=== PATIENT | female | born 2005 | race African-American/Black ===

== ENCOUNTER 2024-08-10 01:42 | Inpatient (IN) | payer SELFPAY ==
[~2024-08-10] VITALS: Ht 160 cm; Wt 54.4 kg
[2024-08-10 02:37] LABS: BASOPHILS % 0.8 % (0.0-2.0); HEMATOCRIT. 40.9 % (36.0-48.0); HEMOGLOBIN. 13.7 g/dL (12.0-16.0); LYMPHOCYTES % 23.4 % (20.0-50.0); MEAN CORPUSCULAR HGB CONC 33.6 g/dL (31.0-37.0); MEAN CORPUSCULAR VOLUME 89.4 fL (81.0-99.0); MEAN PLATELET VOLUME 8.5 fl (7.4-10.4); MONOCYTES % 9.2 % (2.0-8.0); NEUTROPHILS % 65.6 % (40.0-76.0); PLATELET 325 x1000/uL (130-400); RED BLOOD CELL COUNT 4.58 mill/uL (4.2-5.4); RED CELL DISTRIBUTION WIDTH 14.4 % (11.6-14.6); WHITE BLOOD COUNT 6.8 x1000/uL (4.5-11.0)
[2024-08-10 02:45] LABS: CHLORIDE 108 mEq/L (98-107); POTASSIUM 3.5 mEq/L (3.5-5.1); SODIUM 145 mEq/L (136-145)
[2024-08-10 02:46] LABS: CALCIUM 9.6 mg/dL (8.7-10.4); CARBON DIOXIDE 23 mEq/L (21-32)
[2024-08-10 02:51] LABS: CREATININE 0.7 mg/dL (0.6-1.0); ETHANOL BLOOD 203 mg/dL (<10); GLUCOSE 87 mg/dL (70-105)
[2024-08-10 02:53] LABS: ACETAMINOPHEN 44 ug/mL (10-30)
[2024-08-10 02:57] LABS: CLARITY URINE CLEAR (CLEAR); COLOR URINE YELLOW (YELLOW); GLUCOSE URINE NEGATIVE (NEGATIVE); KETONES URINE NEGATIVE (NEGATIVE); LEUKOCYTE ESTERASE URINE NEGATIVE (NEGATIVE); NITRITE URINE NEGATIVE (NEGATIVE); OCCULT BLOOD URINE NEGATIVE (NEGATIVE); PROTEIN URINE NEGATIVE (NEGATIVE); SPECIFIC GRAVITY URINE 1.004 (1.005-1.030); UROBILINOGEN URINE 0.2 E.U./dL (0.2-1.0)
[2024-08-10 03:03] LABS: UREA NITROGEN BLOOD < 5 mg/dL (9-23)
[2024-08-10 03:04] LABS: *AMPHETAMINES SCREEN URINE NEGATIVE (NEGATIVE); *BARBITURATES SCREEN URINE NEGATIVE (NEGATIVE); *BENZODIAZEPINES SCREEN URINE NEGATIVE (NEGATIVE); *COCAINE SCREEN URINE NEGATIVE (NEGATIVE)
[2024-08-10 03:05] LABS: CANNABINOID URINE SCREEN PRESUMPTIVE POSITIVE (NEGATIVE); ECSTASY MDMA SCREEN URINE NEGATIVE (NEGATIVE); METHADONE URINE SCREEN NEGATIVE (NEGATIVE); OPIATES URINE SCREEN NEGATIVE (NEGATIVE); PHENCYCLIDINE URINE SCREEN NEGATIVE (NEGATIVE)
[2024-08-10] MEDS ORDERED: ACTIVATED CHARCOAL 50 G/240 ML TUBE PO ONE (03:15)
[2024-08-10] MEDS: ONDANSETRON HCL 4MG/2ML INJ IV ONE (03:50)
[2024-08-10] MEDS: PANTOPRAZOLE SODIUM 40 MG/VIAL IV ONE (03:50)
[2024-08-10] MEDS ORDERED: WATER IV NR (04:00)
[2024-08-10] MEDS ORDERED: DEXT 5% IV NR (04:00)
[2024-08-10] MEDS ORDERED: ACETYLCYSTEINE IV NR (04:00)
[2024-08-10] MEDS: ACTIVATED CHARCOAL 50 G/240 ML TUBE PO NR (04:46)
[2024-08-10 04:50] LABS: IRON 346 ug/dL (50-170)
[2024-08-10] MEDS ORDERED: DOCUSATE SODIUM 100MG CAPSULE PO PRN (05:00)
[2024-08-10] MEDS ORDERED: LORAZEPAM 0.5MG TABLET PO PRN (05:00)
[2024-08-10] MEDS ORDERED: CLONIDINE 0.1MG TABLET PO PRN (05:00)
[2024-08-10] MEDS ORDERED: IPRATROPIUM/ALBUTEROL 0.5-3(2.5)MG/3ML NEB HHN PRN (05:00)
[2024-08-10] MEDS ORDERED: GUAIFENESIN 200MG/10ML SUGAR FREE UDC PO PRN (05:00)
[2024-08-10] MEDS ORDERED: ONDANSETRON HCL 4MG/2ML INJ IV PRN (05:00)
[2024-08-10] MEDS: WATER IV NR (05:03)
[2024-08-10] MEDS: ACETYLCYSTEINE IV NR (05:03)
[2024-08-10] MEDS: DEXT 5% IV NR (05:03)
[2024-08-10 05:34] LABS: ALANINE AMINOTRANSFERASE 11 IU/L (10-49); ALBUMIN 4.6 g/dL (3.2-4.8); ASPARTATE AMINOTRANSFERASE 28 IU/L (<34); BILIRUBIN DIRECT 0.1 mg/dL (<=3.0); BILIRUBIN TOTAL 0.6 mg/dL (0.1-1.0); PROTEIN TOTAL 8.2 g/dL (6.0-8.3)
[2024-08-10] MEDS: FOLIC ACID 1 MG, THIAMINE HCL 100 MG, MVI, ADULT NO.1 10 ML in DEXTROSE 5% WATER 1,000 ML IV NR (07:33)
[2024-08-10 08:03] LABS: ACETAMINOPHEN 11 ug/mL (10-30); CREATINE KINASE 197 IU/L (34-145)
[2024-08-10 09:16] LABS: IRON 354 ug/dL (50-170)
[2024-08-10 10:08] LABS: IRON 315 ug/dL (50-170)
[2024-08-10 10:11] LABS: ALANINE AMINOTRANSFERASE 12 IU/L (10-49); ALBUMIN 4.1 g/dL (3.2-4.8); ASPARTATE AMINOTRANSFERASE 24 IU/L (<34); BILIRUBIN TOTAL 0.3 mg/dL (0.1-1.0); PROTEIN TOTAL 6.9 g/dL (6.0-8.3)
[2024-08-10 10:12] LABS: BILIRUBIN DIRECT < 0.1 mg/dL (<=3.0)
[2024-08-10 12:26] LABS: IRON 324 ug/dL (50-170)
[2024-08-10 14:22] VITALS: BP 118/83; PULSE 76; RESP 17; TEMP 36.3
[2024-08-10 20:00] VITALS: BP 106/69; PULSE 69; RESP 20; TEMP 36.3; O2SAT 98
[2024-08-11] VITALS: BP 103/49; PULSE 69; RESP 20; TEMP 36.4; O2SAT 99
[2024-08-11 04:00] VITALS: BP 112/59; PULSE 58; RESP 20; TEMP 36.2; O2SAT 98
[2024-08-11 07:00] VITALS: BP 102/57; PULSE 67; RESP 18; TEMP 36.5; O2SAT 99
[2024-08-11 08:31] LABS: BASOPHILS % 0.5 % (0.0-2.0); EOSINOPHILS % 2.7 % (0.0-5.0); HEMATOCRIT. 38.7 % (36.0-48.0); HEMOGLOBIN. 12.9 g/dL (12.0-16.0); LYMPHOCYTES % 28.7 % (20.0-50.0); MEAN CORPUSCULAR HEMOGLOBIN 29.9 pg (28.0-32.0); MEAN CORPUSCULAR HGB CONC 33.4 g/dL (31.0-37.0); MEAN CORPUSCULAR VOLUME 89.4 fL (81.0-99.0); MEAN PLATELET VOLUME 8.9 fl (7.4-10.4); MONOCYTES % 14.3 % (2.0-8.0); NEUTROPHILS % 53.8 % (40.0-76.0); PLATELET 275 x1000/uL (130-400); RED BLOOD CELL COUNT 4.33 mill/uL (4.2-5.4); RED CELL DISTRIBUTION WIDTH 14.5 % (11.6-14.6)
[2024-08-11 08:39] LABS: CHLORIDE 107 mEq/L (98-107); POTASSIUM 3.2 mEq/L (3.5-5.1); SODIUM 142 mEq/L (136-145)
[2024-08-11 08:40] LABS: CARBON DIOXIDE 23 mEq/L (21-32)
[2024-08-11 08:41] LABS: CALCIUM 9.2 mg/dL (8.7-10.4)
[2024-08-11 08:45] LABS: CREATININE 0.7 mg/dL (0.6-1.0); GLUCOSE 79 mg/dL (70-105)
[2024-08-11 08:46] LABS: UREA NITROGEN BLOOD 6 mg/dL (9-23)
[2024-08-11] MEDS ORDERED: MULTIVITAMINS,THER W-MINERALS TABLET PO SCH (09:00)
[2024-08-11] MEDS: THIAMINE HCL 100MG TABLET PO SCH (09:09)
[2024-08-11] MEDS: FOLIC ACID 1MG TABLET PO SCH (09:09)
[2024-08-11] MEDS: POTASSIUM CHLORIDE 20MEQ TABLET SR PO NR (10:10)
[2024-08-11 10:20] LABS: ACETAMINOPHEN < 2 ug/mL (10-30); ALANINE AMINOTRANSFERASE 12 IU/L (10-49); ASPARTATE AMINOTRANSFERASE 19 IU/L (<34)
[2024-08-11 10:21] LABS: ALBUMIN 3.8 g/dL (3.2-4.8); BILIRUBIN DIRECT 0.1 mg/dL (<=3.0); BILIRUBIN TOTAL 0.5 mg/dL (0.1-1.0); PROTEIN TOTAL 6.3 g/dL (6.0-8.3)
[2024-08-11 11:21] LABS: IRON 63 ug/dL (50-170)
[2024-08-11 12:00] VITALS: BP 113/60; PULSE 70; RESP 18; TEMP 36.5; O2SAT 99
[2024-08-11 16:00] VITALS: BP 109/63; PULSE 66; RESP 18; TEMP 36.8; O2SAT 98
[2024-08-11 20:00] VITALS: BP 113/62; PULSE 65; RESP 20; TEMP 36.2; O2SAT 98
[2024-08-12] VITALS: BP 95/54; PULSE 56; RESP 20; TEMP 36.4; O2SAT 98
[2024-08-12 04:00] VITALS: BP 106/64; PULSE 51; RESP 20; TEMP 36.3; O2SAT 98
[2024-08-12 08:00] VITALS: BP 129/78; PULSE 57; RESP 19; TEMP 37.1; O2SAT 98
[2024-08-12 12:00] VITALS: BP 115/57; PULSE 123; RESP 15; TEMP 36.5; O2SAT 97
[2024-08-12 13:16] LABS: CHLORIDE 106 mEq/L (98-107); POTASSIUM 3.7 mEq/L (3.5-5.1); SODIUM 142 mEq/L (136-145)
[2024-08-12 13:17] LABS: CALCIUM 9.8 mg/dL (8.7-10.4); CARBON DIOXIDE 24 mEq/L (21-32)
[2024-08-12 13:22] LABS: CREATININE 0.7 mg/dL (0.6-1.0); GLUCOSE 77 mg/dL (70-105)
[2024-08-12 13:51] LABS: UREA NITROGEN BLOOD < 5 mg/dL (9-23)
[2024-08-12 16:00] VITALS: BP 104/66; PULSE 60; RESP 19; TEMP 37.1; O2SAT 98
[2024-08-12 20:00] VITALS: BP 120/77; PULSE 80; RESP 20; TEMP 36.3; O2SAT 98
[2024-08-13] VITALS: BP 100/66; PULSE 66; RESP 20; TEMP 36.3; O2SAT 98
[2024-08-13 04:00] VITALS: BP 104/58; PULSE 59; RESP 20; TEMP 36.3; O2SAT 98
[2024-08-13 08:00] VITALS: BP 122/65; PULSE 65; RESP 18; TEMP 36.6; O2SAT 100
[2024-08-13 12:00] VITALS: BP 107/57; PULSE 67; RESP 18; TEMP 36.3; O2SAT 100
[2024-08-13 16:00] VITALS: BP 113/53; PULSE 71; RESP 18; TEMP 36.5; O2SAT 99
[2024-08-13 20:00] VITALS: BP 105/64; PULSE 76; RESP 20; TEMP 36.3; O2SAT 96
[2024-08-14] VITALS: BP 102/57; PULSE 56; RESP 20; TEMP 36.4; O2SAT 98
[2024-08-14 02:58] LABS: UCG KIT LOT# 888041; UCG SCREEN NEGATIVE
[2024-08-14 04:00] VITALS: BP 97/49; PULSE 53; RESP 20; TEMP 36.3; O2SAT 98
[2024-08-14 08:00] VITALS: BP 113/68; PULSE 84; RESP 19; TEMP 36.5; O2SAT 99
[2024-08-14 13:27] VITALS: BP 94/48; PULSE 67; RESP 17; TEMP 36.3; O2SAT 98
[2024-08-14 14:57] VITALS: BP 102/73; PULSE 91; RESP 20; TEMP 36.3; O2SAT 99
[2024-08-14 17:02] VITALS: BP 113/68; PULSE 84; TEMP 97.7; O2SAT 99
== END 2024-08-14 17:30 | DRG 817 ==
LOC: ER 01:42 → 6WST 04:08 → EDBEDREQSVC 10:26
PROVIDERS: ADMIT Internal Medicine; ATTEND Internal Medicine
PROC: GZ56ZZZ Individual Psychotherapy, Supportive (ICD-10-PCS; principal; 2024-08-11)
DX: T39.1X2A Poisoning by 4-Aminophenol derivatives, intentional self-harm, initial encounter (principal); F10.129 Alcohol abuse with intoxication, unspecified; F19.10 Other psychoactive substance abuse, uncomplicated; Z20.822 Contact with and (suspected) exposure to COVID-19; F17.210 Nicotine dependence, cigarettes, uncomplicated; F32.A Depression, unspecified; Y90.7 Blood alcohol level of 200-239 mg/100 ml; F41.9 Anxiety disorder, unspecified; F12.90 Cannabis use, unspecified, uncomplicated; Z91.51 Personal history of suicidal behavior; Y92.89 Other specified places as the place of occurrence of the external cause
CPT/HCPCS: 36415; 74018; 80048; 80076; 80305; 80307; 80320; 80329; 81003; 81025; 82550; 83540; 85025; 87426; 99291; A4606; J0132; J2405; J3411; J3490; J7060; J7070; G0480